=== PATIENT | male | born 1980 | race Caucasian/White ===

== ENCOUNTER 2019-04-07 05:54 | Emergency (ER) | payer MEDICAID, OTHER ==
[~2019-04-07] VITALS: Ht 165.1 cm; Wt 75.0 kg
[~2019-04-07 05:54] MED LIST: HYDR-3965 PO; PENI500T2 PO
[2019-04-07 07:13] VITALS: BP 122/93
== END 2019-04-07 07:16 | disposition home or self-care (01) ==
LOC: ER 05:55
DX: R22.1 Localized swelling, mass and lump, neck (principal); R22.2 Localized swelling, mass and lump, trunk; R22.33 Localized swelling, mass and lump, upper limb, bilateral; M25.512 Pain in left shoulder; R21 Rash and other nonspecific skin eruption; F15.90 Other stimulant use, unspecified, uncomplicated; F17.200 Nicotine dependence, unspecified, uncomplicated; Z79.899 Other long term (current) drug therapy; Z79.2 Long term (current) use of antibiotics; Z59.0 Homelessness; Z56.0 Unemployment, unspecified
CPT/HCPCS: 99281; 99283

== ENCOUNTER 2019-12-21 21:05 | Emergency (ER) | payer MEDICAID, OTHER ==
[~2019-12-21] VITALS: Ht 167.6 cm; Wt 79.5 kg
[2019-12-21] MEDS ORDERED: MIDAZolam 5mg/ml 2ml vial IM ONE ×2 (21:40→22:55)
--- NOTE | 2019-12-21 23:12 | NUR ---
pt given 2nd dose of versed 5 mg im. Remains restless in the gurnes and is mumbling to self. unable to hold conversation, states name and accurately.
--- NOTE | 2019-12-22 00:31 | NUR ---
pt asleep on his left side, hob elevated 30 gegrees cardiac and o2 sat monitor in place . o2 sats at 98 % ra . pt in the direct line of sight of nursing staff will continue to monitor and reassess
--- NOTE | 2019-12-22 01:24 | NUR ---
PT SLEEPING ON HIS LEFT SIDE IN BED HOB ELEVATED 30 DEGREES. PT IN THE DIRECT LINE OF SIGHT OF NURSING STAFF. WILL CONTINUE TO MONITOR AND REASSESS NEEDED .
[2019-12-22] MEDS ORDERED: OLANZapine 5mg rapidly disint. tablet PO ONE (02:05)
[2019-12-22 02:28] VITALS: BP 125/78
[2019-12-22 02:48] LABS: BASOPHILS # (AUTO) 0.1 X10'3 (0-0.2); BASOPHILS % (AUTO) 0.8 % (0-1); EOSINOPHILS # (AUTO) 0.2 X10'3 (0-0.9); EOSINOPHILS % (AUTO) 2.4 % (0-6); HEMATOCRIT 39.8 % (42.0-52.0); HEMOGLOBIN 13.3 g/dl (14.0-17.9); LYMPHOCYTES # (AUTO) 2.1 X10'3 (1.1-4.8); LYMPHOCYTES % (AUTO) 21.7 % (21-51); MEAN CORPUSCULAR HEMOGLOBIN 30.2 PG (27.0-31.0); MEAN CORPUSCULAR HGB CONC 33.4 g/dL (33.0-36.5); MEAN CORPUSCULAR VOLUME 90.3 FL (78-98); MEAN PLATELET VOLUME 8.5 FL (7.4-10.4); MONOCYTES # (AUTO) 1.3 X10'3 (0-0.9); MONOCYTES % (AUTO) 13.4 % (2-12); NEUTROPHILS % (AUTO) 61.7 % (42-75); PLATELET COUNT 199 X10'3 (140-440); RED CELL DISTRIBUTION WIDTH 13.7 % (11.5-14.5); WHITE BLOOD COUNT 9.7 X10'3 (4.5-11.0)
[2019-12-22 03:03] LABS: ALANINE AMINOTRANSFERASE 53 U/L (12-78); ALBUMIN/GLOBULIN RATIO 1.2 (1.1-1.5); ALKALINE PHOSPHATASE 69 IU/L (46-116); ANION GAP 9 (8-16); ASPARTATE AMINO TRANSFERASE 89 U/L (10-37); BILIRUBIN,TOTAL 1.6 MG/DL (0.1-1.0); BLOOD UREA NITROGEN 12 MG/DL (7-18); BUN/CREATININE RATIO 11.4 (5.4-32.0); CHLORIDE 107 MMOL/L (99-107); CREATININE 1.05 MG/DL (0.60-1.10); GLUCOSE 99 MG/DL (70-104); POTASSIUM 3.1 MMOL/L (3.5-5.1); SODIUM 140 MMOL/L (135-145); TOTAL CARBON DIOXIDE 24.1 MMOL/L (24-32); TOTAL PROTEIN 7.4 G/DL (6.4-8.2); eGFR 79 ML/MIN
== END 2019-12-22 04:15 | disposition home or self-care (01) ==
LOC: ER 21:05
DX: F15.10 Other stimulant abuse, uncomplicated (principal); R45.1 Restlessness and agitation; Z59.0 Homelessness; Z56.0 Unemployment, unspecified; Z79.899 Other long term (current) drug therapy
CPT/HCPCS: 36415; 80053; 84443; 85025; 96372; 99285; J2250